=== PATIENT | female | born 1945 | race Caucasian/White ===

== ENCOUNTER 2023-02-28 15:08 | Outpatient (CLI) | payer MEDICARE, SELFPAY ==
--- NOTE | 2023-02-28 14:30 | DI.RAD_ITS ---
Exam(s) XR KNEE RT 3V AP,LAT,CARLI EXAM: XR KNEE RT 3V AP,LAT,CARLI CLINICAL HISTORY: RIGHT KNEE DJD. TECHNIQUE: 2D digital imaging was performed of the right knee. Three views obtained. AP, lateral an d PA tunnel views were obtained. COMPARISON: CR,DX XR KNEE 3V RT from 04/24/2018 FINDINGS: BONES: No acute fracture is present. No bony destructive lesion is seen. There is an enthesophyte at the anterior patella. JOINTS: There are marked degenerative changes seen in the right knee particularly the medial joint co mpartment there is marked joint space narrowing. Osteophytes are seen involving all 3 joint compartm ents. There does appear to be a small joint effusion. SOFT TISSUE: Normal. IMPRESSION: Degenerative changes in the right knee which are severe in the medial femoral tibial joint. DATA REPOSITORY: RADIATION DOSE DELIVERED:
== END 2023-02-28 15:09 | disposition home or self-care (01) ==
LOC: DIORS 15:08
PROVIDERS: PCP Nurse Practitioner Family; Referring Provider Nurse Practitioner Family; Visit Provider Student in an Organized Health Care Education/Training Program
DX: M17.11 Unilateral primary osteoarthritis, right knee (principal)
CPT/HCPCS: 73562; 99203

== ENCOUNTER → 2023-06-23 13:34 | Outpatient (BNVA) | payer MEDICARE, SELFPAY | PROVIDERS: PCP Nurse Practitioner Family; Referring Provider Nurse Practitioner Family; Visit Provider Student in an Organized Health Care Education/Training Program | DX: M17.12 Unilateral primary osteoarthritis, left knee (principal); M17.11 Unilateral primary osteoarthritis, right knee | CPT/HCPCS: 99214 ==

== ENCOUNTER 2023-08-08 05:20 | Outpatient (CLI) | payer MEDICARE, SELFPAY ==
[2023-08-08 15:44] LABS: HCT 37.4 % (36.0-46.0); HGB 12.4 g/dL (11.2-15.7); MCH 27.8 pg (27.0-33.0); MCHC 33.2 % (32.0-36.0); MCV 84 fL (80-95); MPV 9.1 fL (8.0-11.0); Platelet Count 277 10^3/uL (130-400); RBC 4.46 10^6/uL (3.93-5.22); RDW-SD 42.7 fL; WBC 10.22 10^3/uL (4.4-10.8)
[2023-08-08 16:47] LABS: Anion Gap 10.5 mmol/L (3-11); BUN 11 mg/dL (7-18); CO2 29.5 mmol/L (21.0-32.0); CREATININE 0.7 mg/dL (0.55-1.02); Calcium 9.6 mg/dL (8.5-10.1); Chloride 102 mmol/L (98-107); Estimated GFR 89.58 (mL/min/1.73m2); Glucose 106 mg/dL (74-106); Potassium 4.1 mmol/L (3.5-5.1); Sodium 142 mmol/L (136-145)
== END 2023-08-08 05:21 | disposition home or self-care (01) ==
LOC: LBO 05:21
PROVIDERS: PCP Nurse Practitioner Family; Visit Provider Student in an Organized Health Care Education/Training Program
DX: M17.11 Unilateral primary osteoarthritis, right knee (principal); Z01.818 Encounter for other preprocedural examination
CPT/HCPCS: 36415; 80048; 85027

== ENCOUNTER 2023-08-08 15:56 | Outpatient (CLI) | payer MEDICARE, SELFPAY ==
--- NOTE | 2023-08-08 15:15 | DI.RAD_ITS ---
Exam(s) XR STANDING ALIGNMENT EXAM: XR STANDING ALIGNMENT CLINICAL HISTORY: R TKR Planning. TECHNIQUE: 2D digital imaging was performed. Four images were obtained. COMPARISON: CR,DX XR KNEE 3V RT from 04/24/2018 CR ORTHO KNEE RIGHT 4+VIEWS from 03/20/2020 CR XR KNEE RT 3V AP,LAT,CARLI from 02/28/2023 FINDINGS: BONES: The hips are well maintained. In the right knee, there is marked narrowing of the medial femo ral tibial joint. Osteophytes are seen in both the medial and lateral femoral tibial joint space. I n the left knee, there is marked narrowing of the medial femoral tibial joint. Osteophytes are seen both medially and laterally. The ankles are well maintained.There is no significant leg length discr epancy. SOFT TISSUE: Normal. IMPRESSION: Marked osteoarthritis of the knees bilaterally. DATA REPOSITORY: RADIATION DOSE DELIVERED:
== END 2023-08-08 15:57 | disposition home or self-care (01) ==
LOC: DIORS 15:57
PROVIDERS: PCP Nurse Practitioner Family; Visit Provider Physician Assistant
DX: M17.11 Unilateral primary osteoarthritis, right knee (principal); Z01.818 Encounter for other preprocedural examination
CPT/HCPCS: 77073

== ENCOUNTER 2023-08-16 07:08 | Observation (INO) | payer MEDICARE, SELFPAY ==
[2023-08-16] VITALS (20 sets, daily range): BP systolic 102–169; BP diastolic 51–91; PULSE 63–77; RESP 15–20; TEMP 35.7–37; O2SAT 92–198; BMI 42.3
--- NOTE | 2023-08-16 06:42 | ANES.PREOP_ITS ---
General Info Date of Service Date Performed: 08/16/23 Height: 4 ft 11 in Weight: 95 kg Body Mass Index (BMI): 42.3 Surgical Procedure: Operation Date: 08/16/23 07:40 Proposed Procedure Side Surgeon p Knee Total Arthroplasty Right Salvador Colbert MD Meds Allergies and Home Medications Allergies Allergy/AdvReac Type Severity Reaction Status Date / Time Penicillins Allergy Intermediate Skin Rash Verified 08/16/23 06:21 Home Medication Medication Instructions Recorded atenolol 50 mg tablet 50 mg PO HS 12/27/22 atorvastatin 20 mg tablet 20 mg PO DAILY 12/27/22 cetirizine 10 mg tablet 10 mg PO DAILY PRN 12/27/22 cholecalciferol (vitamin D3) 10 10 mcg PO DAILY 12/27/22 mcg (400 unit) capsule vitamin E (dl, acetate) 450 mg 450 mg PO DAILY 12/27/22 (1,000 unit) capsule dulaglutide 0.75 mg/0.5 mL 3 mg subcut QWEEK 08/08/23 subcutaneous pen injector ([facility]) metformin 500 mg tablet 1,000 mg PO BID 08/08/23 acetaminophen 500 mg tablet 1,000 mg (2 x 500 mg) PO TID #90 08/16/23 tabs aspirin 81 mg tablet,delayed 81 mg PO BID #60 tabs 08/16/23 release celecoxib 200 mg capsule 200 mg PO BID #60 caps 08/16/23 dexamethasone 4 mg tablet 4 mg PO DAILY #2 tabs 08/16/23 gabapentin 300 mg capsule 300 mg PO QHS #14 caps 08/16/23 hydromorphone 2 mg tablet 1 - 2 mg (0.5 - 1 x 2 mg) PO Q4H 08/16/23 PRN pain #20 tabs pantoprazole 40 mg tablet,delayed 40 mg PO DAILY #30 tabs 08/16/23 release Current Visit Medications: Current Medications Generic Name Dose Route Start Last Admin Trade Name Freq PRN Reason Stop Dose Admin Acetaminophen 1,000 mg 08/16/23 06:00 Acetaminophen 500 Mg Tab PO 09/14/23 23:59 PREOP JEFF Celecoxib 400 mg 08/16/23 06:00 Celecoxib 200 Mg Cap PO 09/14/23 23:59 PREOP JEFF Gabapentin 300 mg 08/16/23 06:00 Gabapentin 300 Mg Cap PO 09/14/23 23:59 PREOP JEFF Ringer's Solution 1,000 mls @ 80 mls/hr 08/16/23 06:00 IV 09/14/23 23:59 INFUSION JEFF Tranexamic Acid/Sodium Chloride 1,000 mg in 100 mls @ 600 mls/hr 08/16/23 06:00 IVPB 09/14/23 23:59 PREOP JEFF Cefazolin Sodium/Dextrose 2 gm in 50 mls @ 100 mls/hr 08/16/23 06:00 Ancef Duplex IVPB 09/14/23 23:59 PREOP JEFF IV Miscellaneous Supplies 1 each 08/16/23 06:00 Iv Access IV 09/14/23 23:59 DIRECTED JEFF Sodium Chloride 0 ml 08/16/23 06:00 Normal Saline Flush 10 Ml Syr IV 09/14/23 23:59 PRN PRN Sodium Chloride 0 ml 08/16/23 06:00 Normal Saline 10 Ml Vial IJ 09/14/23 23:59 DIRECTED PRN Sterile Water 0 ml 08/16/23 06:00 Water,Injection,Sterile 10 Ml Vial IJ 09/14/23 23:59 DIRECTED PRN PFSH Active Problems Active Problems: Problem Status Onset Code Localized osteoarthritis of left knee M17.12 Degenerative joint disease of right knee M17.11 Hypertensive disorder I10 Hyperlipidemia E78.5 Type 2 diabetes mellitus E11.9 Medical History Medical History Former smoker Surgical History Surgical History (Updated 08/12/23 @ 12:59 by John Lares) History of colonoscopy Previous back surgery pt. denies-pt. states she went for traction but never surgery History of appendectomy Tobacco Smoking/Tobacco Use Status: Former Tobacco Use Alcohol Alcohol Intake: current Alcohol intake frequency: holidays/special occasions only Substance Use Substance use: Never Substance use type: does not use Vital Signs and Lab Results Vital Signs Most Recent Vital Signs in EMR: Most Recent Vital Signs Temp Pulse Resp BP Pulse Ox 36.5 C 73 16 124/62 97 08/16/23 06:26 08/16/23 06:26 08/16/23 06:26 08/16/23 06:26 08/16/23 06:26 Lab Results Blood Type / Crossmatch: No Data to Display Complete Blood Count: White Blood Count 10.22 10^3/uL (4.4-10.8) 08/08/23 15:25 Red Blood Count 4.46 10^6/uL (3.93-5.22) 08/08/23 15:25 Hemoglobin 12.4 g/dL (11.2-15.7) 08/08/23 15:25 Hematocrit 37.4 % (36.0-46.0) 08/08/23 15:25 Platelet Count 277 10^3/uL (130-400) 08/08/23 15:25 Complete Metabolic Panel: Sodium 142 mmol/L (136-145) 08/08/23 15:25 Potassium 4.1 mmol/L (3.5-5.1) 08/08/23 15:25 Chloride 102 mmol/L (98-107) 08/08/23 15:25 Carbon Dioxide 29.5 mmol/L (21.0-32.0) 08/08/23 15:25 BUN 11 mg/dL (7-18) 08/08/23 15:25 Creatinine 0.7 mg/dL (0.55-1.02) 08/08/23 15:25 Est GFR (CKD-EPI 2020) 89.58 (mL/min/1.73m2) 08/08/23 15:25 Calcium 9.6 mg/dL (8.5-10.1) 08/08/23 15:25 Glucose 106 mg/dL (74-106) 08/08/23 15:25 Liver Function Panel: No Data to Display Coagulation Panel: No Data to Display Cardiac Panel: No Data to Display Arterial Blood Gas: No Data to Display Venous Blood Gas: No Data to Display Pancreas Panel: No Data to Display Thyroid Panel: No Data to Display Infectious Disease: No Data to Display Blood Cultures: No Data to Display Toxicology Panel: No Data to Display Anesthesia Assessment and Plan Anesthesia History Personal History: No History of Anesthesia Complications Family History: No Family History of Anesthesia Complications Exercise Tolerance Exercise Tolerance: Metabolic Equivalents>4 Pertinent Negatives Pertinent Negatives: No Major Cardiovascular Symptoms or Complaints and No Major Pulmonary Symptoms or Complaints Cardiac & Pulmonary Exam Cardiac Exam: Normal S1/S2 Heart Sounds Pulmonary Exam: Clear Bilateral Breath Sounds Implantable Cardiac Device Does patient have a Pacemaker or an ICD?: No Airway Exam Known Difficult Airway: No Mallampati Class: 2 Mouth Opening: Normal (> 3cm) Thyromental Distance: Greater than 3 cm Neck Range of Motion: Full ROM Neck Circumference: Normal Teeth Condition: Removable Dentures/Plates Upper and Removable Dentures/Plates Lower ASA Classification ASA Score: ASA 3 Emergency Case?: No NPO Status NPO Status: NPO Clears >2 hours, Solids >8 hours Anesthesia Plan Resuscitation Status: Full Code Anesthesia Technique: Spinal Anesthesia Airway Planned: Natural Airway Pain Management: Surgeon and patient request nerve block Monitors Used: Standard Monitors Preoperative Comments:: SAB with MAC anesthesia, has poorly controlled GERD
[2023-08-16] MEDS: Acetaminophen 500 MG TAB 1000 MG PO ×2 (06:44→21:24)
[2023-08-16] MEDS: Celecoxib 200 MG CAP 400 MG PO (06:45)
[2023-08-16] MEDS: Gabapentin 300 MG CAP PO (06:45)
[2023-08-16] MEDS: Lactated Ringers 1,000 ML 80 ML IV ×2 (06:54→10:25)
--- NOTE | 2023-08-16 07:09 | PDOC.DSDIS_ITS ---
Date of service: 08/16/23 Time of Service: 07:09 Discharge Plan Disposition Patient Disposition: Home Condition: Good Discharge Details Reason For Visit: R TKR Attending Provider: Salvador Colbert Primary Care Provider: Sony Snider Home Meds and New Rx's Prescriptions: New acetaminophen 500 mg tablet 1,000 mg PO TID Qty: 90 3RF aspirin 81 mg tablet,delayed release (DR/EC) 81 mg PO BID Qty: 60 0RF celecoxib 200 mg capsule 200 mg PO BID Qty: 60 0RF dexamethasone 4 mg tablet 4 mg PO DAILY Qty: 2 0RF gabapentin 300 mg capsule 300 mg PO QHS Qty: 14 0RF hydromorphone 2 mg tablet 1 - 2 mg PO Q4H PRN (Reason: pain) Qty: 20 0RF pantoprazole 40 mg tablet,delayed release (DR/EC) 40 mg PO DAILY Qty: 30 0RF Continued metformin 500 mg tablet 1,000 mg PO BID Trulicity 0.75 mg/0.5 mL pen injector 3 mg subcut QWEEK atenolol 50 mg tablet 50 mg PO HS atorvastatin 20 mg tablet 20 mg PO DAILY cetirizine 10 mg tablet 10 mg PO DAILY PRN cholecalciferol (vitamin D3) 10 mcg (400 unit) capsule 10 mcg PO DAILY vitamin E (dl, acetate) 450 mg (1,000 unit) capsule 450 mg PO DAILY Discontinued aspirin [Adult Aspirin Regimen] 81 mg tablet,delayed release (DR/EC) 81 mg PO DAILY Discharge Instructions Additional Instructions: Total Knee Discharge Instructions Activity: The most important activity is to walk and to work on gentle motion (both flexion and extension). You should try to take short walks a few times a day. It is important that when resting you work on keeping the knee straight. Avoid putting a pillow behind the knee as this will encourage flexion. Work on range of motion exercises as provided by Physical Therapy. - Start outpatient physical therapy within 2 weeks. - You should wear the STEPHAN hose on both legs for 2 weeks. You may remove these at night. You may also use any compression sock in place of the STEPHAN hose. - Utilize [employer] to review exercises, see videos on exercises and obtain basic information pertaining to your surgery and your recovery. Dressing: Remove the Flip wrap by 2 days after your surgery and put on the STEPHAN stocking given to you from the hospital. Keep the surgical dressing (underneath the FLIP wrap) in place for at least one week. After the first week it may be removed and replaced with light gauze and tape or nothing. The wound and dressing may get wet after 3 days but avoid soaking the dressing or otherwise it will need to be changed. Many people prefer covering the dressing with cling wr ap (saran wrap) to minimize it from getting soaked. If it gets wet, just pat dry. If it starts to peel off then it will need to be changed. Medications: - You should take Tylenol and anti-inflammatory Celebrex as your primary pain control medications. If the Celebrex is too expensive or not covered, please call the office for another alternative (Advil/Ibuprofen or Naproxen/Aleve) - You have been prescribed a stronger pain medication hydromorphone for breakthrough pain, take as needed as prescribed. - You have also been prescribed a stomach acid reduction agent Pantoprozole to help reduce stomach acid and reflux. - You have been prescribed Gabapentin to take at night for restlessness and nerve pain. - You will be taking Aspirin 81mg twice a day for DVT prevention unless instructed otherwise. - You have also been prescribed Decadron to take to control post-operative nausea and pain. You will start this tomorrow. - If you have constipation you should take Colace or Miralax (both [id number]). It takes most people 3-4 days to have a bowel movement. Follow-up: 2 weeks If you have any acute concerns or questions, please do not hesitate to contact the office at [phone]. You may contact Dr. Colbert with any questions after hours through the hospital at [phone] or on his cell phone at [phone]. Referrals: Salvador Colbert MD [ [facility] STAFF PHYSICIAN] - Equipment/Supplies: Walker Activity:: Activity as Tolerated Shower/Bathe:: 72 hours Diet:: As Tolerated DS: Diagnosis Discharge Diagnosis (1) Degenerative joint disease of right knee: Status: Chronic
[2023-08-16] MEDS: ceFAZolin 2 GM/50 ML BAG IVPB (07:49)
[2023-08-16] MEDS: TRANEXAMIC ACID/SOD. CHL. 1,000 MG/100 ML BAG 600 MG IVPB (08:01)
--- NOTE | 2023-08-16 08:23 | W.ANESNERVE ---
Nerve Block Single Injection Procedure Date and Time Date Performed: 08/16/23 Procedure Start: 07:25 Location Where Procedure Performed Procedure Location: Day Surgery Unit Reason Performed: Postoperative Analgesia Requesting Provider: Salvador Colbert Timeout Performed Timeout Performed: Yes Monitoring Used ECG, Blood Pressure and See EMR for corresponding vital signs Sterility Sterility: Hand Hygiene, Surgical Cap, Surgical Mask, Sterile Gloves and Chlorhexidine Sedation Given During Procedure Sedation Given (Indicate Dose Given): No Sedation given Patient Mental Status Patient Mental Status: Awake Nerve Block 1st Nerve Block: Laterality: Right Block Type: Adductor Canal Ultrasound Image Saved?: Yes Needle / Catheter Used: 100mm SonoPlex II Local Anesthetic Bolus (Indicate Dose Given): Lidocaine used for local infiltration of skin, Injected in 3-5ml increments after negative blood aspiration and Bupivacaine 0.25% Dose:: 15 mL Additives (Indicate Dose Given): None Ultrasound: Sterile probe cover and gel used Nerve Stimulator: Supplement to Ultrasound use and No twitch or parasthesia noted < 0.5 mA Paresthesia: Right Paresthesia Duration: Transient Procedure Tolerated: No Complications Procedure Outcome: Successful Procedure Comment: Transient parasthesia when advancing needle, negative nerve stimulation for entirety of block. Patient tolerated well. Performed By: Brooklyn Reid
--- NOTE | 2023-08-16 09:15 | ROE_ITS ---
Date of service: 08/16/23 Time of Service: 08:00 Operative Note Operative Note DATE OF PROCEDURE: 08/16/23 PRE-OP DIAGNOSIS: Right Knee Osteoarthritis POST-OP DIAGNOSIS: same PROCEDURE: Right Total Knee Replacement SURGEON: Salvador Colbert PEDIATRIC NEPHROLOGIST: Jamila Snell ANESTHESIA TYPE: Spinal Refer to Anesthesia Record ESTIMATED BLOOD LOSS: 150 PATHOLOGY: none sent TOURNIQUET TIME: 0 COMPLICATIONS: None Patient was transported to: PACU Patient's condition: stable Implants: 1. Depuy Attune Cementless Cruciate Retaining Femoral Component, Size 4 2. Depuy Attune Cementless Fixed Bearing Tibial Component, Size 4 3. Depuy Attune 4x7 CR/FB Poly 4. Depuy Attune Patellar Component, Size 32 Indications: I have seen Irasema in clinic for symptoms of knee arthritis, confirmed with radiographic findings. She has exhausted nonoperative methods and was having significant limitations in daily function and desired better function and less pain. I discussed the technical details of a knee replacement. I explained the risks of the procedure to include, but not limited to, bleeding, infection, pain, stiffness, fracture, damage to nerves and vessels, damage to muscles and tendons, loosening, need for repeat procedure, blood clot and cardiopulmonary demise. Despite these risks, Irasema elected to proceed. Findings: There was significant signs of arthritis throughout the knee, focused mostly over the medial compartment. Procedure Description: Irasema was greeted in the preoperative holding area where the correct side was identified and marked. The consent was reviewed with the patient and signed. The history and physical was updated. All questions were answered. Preoperative medications were administered: Acetaminophen 1000mg, Celebrex 400mg, and Gabapentin 300mg. An adductor canal block was then administered by the anesthesia team in the PACU. She was taken back to the operating room. A spinal anesthestic was then administered. The patient was placed into the supine position on the operating room table. A nonsterile tourniquet was placed high onto the leg but only used for cementing. Posts were placed for positioning during the procedure. All bony prominences were well padded. Prophylactic antibiotics in the form of Cefazolin were administered. 1g of Tranxemic Acid was given intravenously within 30 minutes of incision. The right leg was then prepped with Chloraprep and draped in a standard fashion with impervious stockinette. A second prep with Chloraprep was performed prior to application of Iodine impregnated skin pr otection. A timeout to confirm correct identity, side and site, procedure, allergies, anesthesia, and medical concerns was performed. With the knee in some flexion, a midline incision was made overlying the knee. Full thickness skin flaps were raised once the extensor mechanism was encountered. These were raised medially and laterally. Any bleeding was controlled with electrocautery. Once the extensor mechanism was fully exposed, a medial parapatellar arthrotomy was performed in a flexed position. All bleeding from the arthrotomy and the geniculate arteries was coagulated. A medial subperiosteal peel was performed with electrocautery to the midcoronal plane. The fat pad was removed while keeping the patellar tendon protected. The anterior distal femur synovium was removed for later visualization. The ACL and PCL were resected and the anterior horn of the lateral meniscus was transected. The knee was then flexed with the patella everted. Large osteophytes from the tibia were removed. Large osteophytes from the femur were removed. Using a step drill, and based on preoperative templating, the femoral canal was entered. This was done with a step drill without any difficulty. The intramedullary distal femoral cut guide was inserted, set to a 6 degree valgus cut and 9mm cut thickness. The distal femoral cut guide was then held in position and pinned. With the soft tissues protected, the distal cut was performed. This was passed over a few times to ensure a planar cut. I then turned attention to the tibia. The extramedullary guide was placed onto the leg. The distal aspect was slid medial to adjust for position of center of ankle and stay in line with shaft of the tibia. Approximately 5 degrees of posterior slope was kept in the proximal cutting guide. The center of the guide was aligned with the PCL. The stylus was used to assess cut thickness. The medial side, most involved side, was set for a 5mm cut. This was then held in position and pinned into place with 2 additional pins and a cross pin for stability. The medial and lateral collateral ligaments were protected and the cut was performed. With this completed, it was assessed and noted to be of appropriate dimensions. The guide was removed. A spacer block was inserted and the knee was brought into extension. The 7mm spacer block provided full extension, without hyperextension and with stability of both the medial and lateral collateral ligaments was assessed. The pins from the femur and the tibia were then removed. The distal femur was then sized. The anterior stylus was placed onto the lateral ridge of the anterior femur. This indicated a size 4 femur. The external rotation of the guide was adjusted to 3 degrees to match the epicondylar axis, perpendicular to Flo?s line. The 4-in-1 cutting guide was the placed. The posterior medial femur cut was evaluated and appeared of good thickness. The spacer block was inserted underneath the cutting guide and stability was confirmed in 90 degrees of flexion. An karena wing was used to confirm appropriate position of the anterior cut to avoid notching. This cutting guide was ensured to be flush on the cut surface and then pinned into place with headed pins. While protecting the soft tissues, quad tendon, and collateral ligaments, the anterior and posterior cuts were performed with a saw. The central two pins were removed and the posterior and anterior chamfers were cut next. The notch-cutting guide was placed. This was pinned to lateralize the femoral component as much as possible while keeping it flush on the cut surface. This was then pinned into position. A reciprocating saw was used to make the notch cut. A rasp smoothed the cut surfaces. The medial and lateral menisci were removed. A trial femoral component was then inserted, impacted down to the cut surfaces, and the lug holes were drilled. A provisional trial tibial component was placed and the knee was brought through range of motion. There was noted to be excellent extension and flexion. There was no significant instability. The patella was tracking without thumbs. A size 7mm polyethylene component provided the best range of motion and stability with less than 2mm gapping with medial and lateral stress and full extension without significant hyperextension. The tibial cut surface was fully exposed. The tibia was then sized as a 4. The tibia had been previously marked during trialing to correspond to the center of the tibial component to help with rotation. The trial was aligned to this jamila, approximately rotated to the medial 1/3rd of the tibial tubercle. The trial was pinned into place. The tibia was prepared with a reamer and a keel punch and lug holes. The knee was then brought into extension and the patella was measured as 22mm. Using the patellar clamp and cut guide, this was resected to a flat surface with at least 13mm of thickness remaining. The size 32 patella fit the best. This was oriented and then clamped into position. The lugs were drilled. The trial components were removed. The final components were opened on the back table. The periosteal and capsular tissues, especially posteriorly, around the knee were then systematically injected with a periarticular cocktail consisting of 246mg of Ropivacaine, 0.5mg of Epinephrine, 0.08mg of Clonidine, and 30mg of Ketorolac, diluted to 100cc. On the back table, with the implants opened, the cement was mixed. One batch of high viscosity cement was prepared with vacuum assistance. After the cement was ready a small amount was placed on the cut surface of the patella and the patellar button was clamped into position and held. While the cement was hardening, the cementless knee components were placed. Starting with the tibial component, the tibia was subluxed anteriorly and the lug holes of the component were lined up. The tibia was then impacted with an impactor and mallet until the tibial component was in contact with the tibia. The final polyethylene component was inserted. Then, the femoral component was inserted. The lug holes were aligned and the component was impacted into position. The knee was irrigated with Surgiphor Betadine solution. This was allowed to sit in the knee for 3 minutes and then it was irrigated out with saline. After the cement had finally cured, approximately 15min, the clamp was removed from the patella and the knee was taken through range of motion. The patella was tracking with a no-thumbs technique. The capsule was then reapproximated with a No. 1 Vicryl at multiple locations. The capsule was finally closed with a No. 2 Stratafix, barbed suture. The second dosing of 1g TXA was started. Deep tissues were then reapproximated with 0 Vicryl and 2-0 Vicryl. The skin was closed with a running 3-0 Monocryl in a subcuticular fashion. This was reinforced with skin glue. A Mepilex silver dressing was applied along with a oala-oy-kaala CAMPOS wrap. A CryoCuff was applied. Irasema was transferred to the hospital bed without difficulty an suffering no apparent complication. Irasema has a good prognosis. Physical therapy will start today and without restrictions, weight-bearing as tolerated. Aspirin 81mg BID will be used for DVT prophylaxis.
--- NOTE | 2023-08-16 10:23 | W.ANESPOSTOP ---
Postoperative Evaluation Date, Time and Location Date Performed: 08/16/23 Time Performed: 09:35 Patient Location: PACU Vital Signs Most Recent Imported Vital Signs: Most Recent Vital Signs Temp Pulse Resp BP Pulse Ox 36.4 C L 63 17 125/90 198 H 08/16/23 09:58 08/16/23 09:58 08/16/23 09:58 08/16/23 09:58 08/16/23 09:58 Pain Score Most Recent Pain Score: Most Recent Pain Score Pain Level 2 08/16/23 09:58 Assessment Mental Status: Awake (Alert & Oriented to Patient Baseline) Airway and Respiratory Function: Patent airway with normal (patient baseline) respiratory exam Cardiovascular Function: Hemodynamically Stable Hydration Status: Adequately Hydrated Nausea & Vomiting: No Nausea or Vomiting Pain: Pain is tolerable per patient Peripheral Nerve Block: Patient did not receive a nerve block
[2023-08-16] MEDS: traMADol 50 MG TAB PO (14:16)
--- NOTE | 2023-08-16 15:36 | IN_ITS ---
PT Notes Visit Reasons: OA R Knee Physical Therapy Inpatient Initial Evaluation Date: 08/16/2023 Referring Doctor: CHRISSY Junior PT Orders: PT CONSULT: S/P Ortho Surgery Precautions: Fall. Standard precautions. WBAT on right LE with AD. Patient Profile/Admitting Diagnosis: Irasema is a 77-year-old female with degenerative joint disease of the right knee and status post right total knee arthroplasty on postoperative day 0. PMHX: Medical History Former smoker Surgical History History of colonoscopy Previous back surgery History of appendectomy Social History/Home Situation: Lives with in a private home with no steps to enter. Independent with all aspects of ADLs prior to surgery although has had difficulty with mobility ADL performance due to worsening arthritis. Still drives. Equipment Owned/DME: [facility] Subjective: Reported muscles above R knee was achy but did not limit today's mobility performance. Denied headache, chest pain, and lightheadedness throughout session. Objective: General Observation: CAMPOS wrap to right knee. Cryo/Cuff to right knee. Mental Status: Alert and oriented as to person, place, time, and purpose. Able to pay attention, focus, and respond appropriately. Pain: 2-3/10 on the R distal thigh Vital Signs: WNL as closley monitored by nursing ROM: Right Lower Extremity: Hip flexion WFL. Hip abduction WFL. Knee flexion 10 degrees to 90 degrees ACTIVELY while seated at edge of bed. Knee extension -10 degrees. Ankle dorsiflexion WFL. Ankle plantarflexion WFL. Left Lower Extremity: Hip flexion WFL. Hip abduction WFL. Knee flexion WFL. Ankle dorsiflexion WFL. Ankle plantarflexion WFL. Strength: Right Lower Extremity: Hip flexors 4/5. Hip abductors 4/5. Knee flexors 3-/5. Knee extensors 3-/5. Ankle dorsiflexors 4/5. Ankle plantarflexors 4/5. Left Lower Extremity: Hip flexors 5/5. Hip abductors 5/5. Knee flexors 4/5. Knee extensors 4/5. Ankle dorsiflexors 5/5. Ankle plantarflexors 5/5. Bed Mobility/Transfers: Minimal cueing provided for use of B hands as needed for support, movement sequence, AD management, and posture to reduce fall risk and minimize pain report Supine to sit contact guard assist with HOB at 30 degrees Sit to stand contact-guard assist with FWW Stand to sit contact-guard assist with FWW Bed to reclining contact-guard assist with FWW Gait: Facilitated safe and correct performance of level surface ambulation covering a distance of 50 feet using front wheeled walker with step to gait pattern requiring contact-guard assist and wheelchair follow of PT for safety. Minimal verbal cueing provided for AD management, movement sequence, and posture to reduce fall risk and minimize pain report. Balance: Static Sitting: Normal Dynamic Sitting: Normal Static Standing: Fair Dynamic Standing: Fair Special Tests: Mobility Limitations Standardized Measure [facility] AM-PAC 6 clicks Basic Mobility Inpatient Short Form: Raw Score: 18 CMS Score: 47 % deficit Informed Consent/Education: Patient was instructed in purpose of PT consult and plan of care. Agreeable to proceed with established PT POC to achieve personal goals. Trained patient with correct performance of exercises below to maximize motor control, joint flexibility, soft tissue extensibility of the R knee musculature: Access Code: [email or web address] URL: [email or web address] Date:08/16/2023 Prepared by: Ashley Harden Exercises - Supine Quad Set - 1 x daily - 7 x weekly - 1 sets - 10 reps - 5 hold - Supine Heel Slide - 1 x daily - 7 x weekly - 1 sets - 10 reps - 5 hold - Supine Ankle Pumps - 1 x daily - 7 x weekly - 1 sets - 10 reps - 5 hold - Small Range Straight Leg Raise - 1 x daily - 7 x weekly - 1 sets - 10 reps - 5 hold - Seated March - 1 x daily - 7 x weekly - 1 sets - 10 reps - 5 hold Assessment: Irasema requires the use of a front wheeled walker for all mobility ADL performance to maximize independence and reduce fall risk while minimizing pain report. Patient presents with clinical signs and symptoms consistent with current/admitting diagnoses that have resulted to mobility limitations, gait instability, generalized weakness, and overall ADL decline as demonstrated by the following impairment level findings: 1. Decreased strength to R kne major muscle groups 2. Impaired sitting/standing balance 3. Impaired activity tolerance 4. Limitation of joint range of motion in R knee Impairments are contributing to the following functional limitations: 1. Decline in bed mobility skills 2. Decline in transfer skills 3. Difficulty with ambulation without assistive device and physical assistance 4. Increased completion time for mobility ADL performance 5. Increased risk for falls 6. Difficulty with managing steps alone safely Patient is assessed as a 26820 moderate complexity based on the following: History: 77-year-old female with past medical history as indicated above Examination: Demonstrable impairment in strength, balance, and mobility level with underlying impairments and functional limitations as exhibited above as well as deficit score of 47% utilizing the [facility] Mobility Inpatient Short Form Presentation: Evolving Decision Makin moderate complexity Goals: Goals X1 week 1. Supine-Sit independent 2. Sit-Supine independent 3. Sit-Stand independent 4. Stand-Sit independent with FWW 5. Bed-Chair independent with FWW 6. Chair-Bed independent with FWW 7. Independent gait on level surface with use of FWW for at least 300 feet without report of pain nor dyspnea 8. Independent with home exercise program 9. Good static and dynamic standing balance/tolerance Plan of Care/Treatment Plan: 1-2x/day, 7 days/week x 1 week. Plan of care has been reviewed with the [facility] providing the service under Physical Therapy direction. Initiate Physical Therapy intervention for pain management as needed, strengthening, bed mobility, transfers, gait, stairs, balance training, and use of assistive device. DISCHARGE RECOMMENDATIONS: [] Home with no services [] [] Home with services [specify] [X] Home with outpatient PT. home when medically cleared by orthopedic surgeon. Recommend outpatient PT services in order to optimize functional mobility outcomes and facilitate return to independent community ambulation without an assistive device. [] SNF for continued rehabilitation [] [] [facility] [] [] SNF versus LTC based on ability to participate and progress [] TREATMENT CODE/TIME: 9716 2 x 20 minutes for 1 unit, 9753 0 x 14 minutes for 1 unit (15:36-16:10). Thank you for the opportunity to participate in the care of this patient. Ashley Harden PT, DPT, CLT [facility] [place], [place]
[2023-08-16] MEDS: Tranexamic Acid 650 MG TAB 1300 MG PO (20:48)
[2023-08-16] MEDS: Atenolol 50 MG TAB PO (20:49)
[2023-08-17] MEDS: Lactated Ringers 1,000 ML 80 ML IV (00:25)
[2023-08-17 03:48] VITALS: BP 120/77; PULSE 56; RESP 18; TEMP 36.2; O2SAT 95
[2023-08-17] MEDS: Cholecalciferol (Vitamin D3) 400 UNIT TAB PO (07:34)
[2023-08-17] MEDS: traMADol 50 MG TAB PO (07:36)
[2023-08-17] MEDS: metFORMIN 500 MG TAB 1000 MG PO (07:36)
[2023-08-17 07:54] VITALS: BP 112/78; PULSE 71; RESP 15; TEMP 36.7; O2SAT 96
--- NOTE | 2023-08-17 09:19 | PT.INTREAT ---
PT Notes Visit Reasons: OA R Knee Date: 08/17/23 PRECAUTIONS: Fall. Standard precautions. WBAT on right LE with AD. SUBJECTIVE: Pt in bed when approached for therapy this morning, pt reports she already took her pain meds and the pain is leseer as a result. OBJECTIVE: ?Cryocuff on the Right knee, SCD on the left LE ? PAIN: 09/11 right knee, Therapeutic Activities 52131: Direct one-on-one instruction in dynamic activities to improve functional performance. ?? BED MOBILITY/TRANSFERS? Rolling L/R: SBA Supine-sit: ? ?SBA ? Sit-supine: ? ?SBA ? Sit-stand: ? ? SBA? Stand-sit: ?? SBA? Bed-Chair:? ? ?SBA ? Chair-bed: SBA Provided skilled cues and instruction on performance and technique throughout. Gait Training 97972: Direct one-on-one instruction and skilled instruction in: Employing an assistive device Modified weight-bearing status Movement sequencing Turning and movement with proper form Provided verbal cues for equipment management and technique Provided instruction in gait pattern Patient education regarding pacing and breathing techniques to maximize activity tolerance? GAIT? Assistive Device: ??FWW? Weight bearing: WBAT Assist: ?CGA ? Distance:?? ? 50' ? Deviation: ?antalgic gait ? ASSESSMENT:?Pt reports the pain stayed at 6/10 during gait training, pt stayed in recliner post session. PLAN: Continue with balance training, global strengthening and general conditioning for improved safety, mobility and activity tolerance until pt is ready for DC. TREATMENT CODE/TIME: [id number] 25mins (8:15-9:20am)
[2023-08-17] MEDS: Acetaminophen 500 MG TAB 1000 MG PO ×2 (09:56→13:29)
[2023-08-17] MEDS: Docusate Sodium 100 MG CAP PO (09:56)
--- NOTE | 2023-08-17 10:13 | DSE_ITS ---
Date of service: 08/17/23 Time of Service: 10:13 DS: Diagnosis Discharge Diagnosis (1) Degenerative joint disease of right knee: Status: Resolved Discharge Plan Disposition Patient Disposition: Home Condition: Good Discharge Details Reason For Visit: OA R Knee Admit Date/Time: 08/16/23 07:08 Admit Provider: Salvador Colbert Attending Provider: Salvador Colbert Primary Care Provider: Sony Snider Hospital Course Hospital Course: Patient was admitted to the medical/surgical floor following the procedure. The surgery was tolerated well without any notable medical, surgical, or anesthetic complications. Mobilization began postoperatively. She was voiding spontaneously. Vitals were stable. Physical therapy worked with the patient and was cleared for discharge home. No acute medical issues. Pain was controlled on oral regimen. Home Meds and New Rx's Prescriptions: New acetaminophen 500 mg tablet 1,000 mg PO TID Qty: 90 3RF aspirin 81 mg tablet,delayed release (DR/EC) 81 mg PO BID Qty: 60 0RF celecoxib 200 mg capsule 200 mg PO BID Qty: 60 0RF dexamethasone 4 mg tablet 4 mg PO DAILY Qty: 2 0RF gabapentin 300 mg capsule 300 mg PO QHS Qty: 14 0RF hydromorphone 2 mg tablet 1 - 2 mg PO Q4H PRN (Reason: pain) Qty: 20 0RF pantoprazole 40 mg tablet,delayed release (DR/EC) 40 mg PO DAILY Qty: 30 0RF Continued metformin 500 mg tablet 1,000 mg PO BID Trulicity 0.75 mg/0.5 mL pen injector 3 mg subcut QWEEK atenolol 50 mg tablet 50 mg PO HS atorvastatin 20 mg tablet 20 mg PO DAILY cetirizine 10 mg tablet 10 mg PO DAILY PRN cholecalciferol (vitamin D3) 10 mcg (400 unit) capsule 10 mcg PO DAILY vitamin E (dl, acetate) 450 mg (1,000 unit) capsule 450 mg PO DAILY Discontinued aspirin [Adult Aspirin Regimen] 81 mg tablet,delayed release (DR/EC) 81 mg PO DAILY Discharge Instructions Additional Instructions: Total Knee Discharge Instructions Activity: The most important activity is to walk and to work on gentle motion (both flexion and extension). You should try to take short walks a few times a day. It is important that when resting you work on keeping the knee straight. Avoid putting a pillow behind the knee as this will encourage flexion. Work on range of motion exercises as provided by Physical Therapy. - Start outpatient physical therapy within 2 weeks. - You should wear the STEPHAN hose on both legs for 2 weeks. You may remove these at night. You may also use any compression sock in place of the STEPHAN hose. - Utilize [employer] to review exercises, see videos on exercises and obtain basic information pertaining to your surgery and your recovery. Dressing: Remove the Flip wrap by 2 days after your surgery and put on the STEPHAN stocking given to you from the hospital. Keep the surgical dressing (underneath the FLIP wrap) in place for at least one week. After the first week it may be removed and replaced with light gauze and tape or nothing. The wound and dres sing may get wet after 3 days but avoid soaking the dressing or otherwise it will need to be changed. Many people prefer covering the dressing with cling wrap (saran wrap) to minimize it from getting soaked. If it gets wet, just pat dry. If it starts to peel off then it will need to be changed. Medications: - You should take Tylenol and anti-inflammatory Celebrex as your primary pain control medications. If the Celebrex is too expensive or not covered, please call the office for another alternative (Advil/Ibuprofen or Naproxen/Aleve) - You have been prescribed a stronger pain medication hydromorphone for breakthrough pain, take as needed as prescribed. - You have also been prescribed a stomach acid reduction agent Pantoprozole to help reduce stomach acid and reflux. - You have been prescribed Gabapentin to take at night for restlessness and nerve pain. - You will be taking Aspirin 81mg twice a day for DVT prevention unless instructed otherwise. - You have also been prescribed Decadron to take to control post-operative nausea and pain. You will start this tomorrow. - If you have constipation you should take Colace or Miralax (both [id number]). It takes most people 3-4 days to have a bowel movement. Follow-up: 2 weeks If you have any acute concerns or questions, please do not hesitate to contact the office at [phone]. You may contact Dr. Colbert with any questions after hours through the hospital at [phone] or on his cell phone at [phone]. Referrals: Salvador Colbert MD [ [facility]FF PHYSICIAN] - Activity:: Activity as Tolerated Equipment/Supplies:: Walker Diet:: As Tolerated Discharge Orders Discharge Orders: Discharge Order (Routine); Ordered 08/17/23 Ordered By: Salvador Colbert DS: Summary Time Spent with Patient providing and/or coordinating discharge services: Less than 30 minutes Status at Discharge Functional status at discharge: uses cane/walker Overall status at discharge: patient is progressing back to baseline Mental Status: mental status grossly normal Speech and Movement: speech and movement normal Mood: congruent mood Affect: normal affect Quality:SDOH Health Related Social Needs: No Data to Display Exam Narrative Exam Narrative: NAD. AAOx3. RLE dressing c/d/i. +ADF/APF/EHL/FHL. SILT DP/SP/Tib. Psych Mental Status: mental status grossly normal Speech and Movement: speech and movement normal Mood: congruent mood Affect: normal affect DS: Data Vitals/I&O Vitals and I&O: Vital Signs Temperature 36.7 C 08/17/23 07:54 Temperature Source Tympanic 08/17/23 07:54 Pulse 71 08/17/23 07:54 Pulse Rhythm Regular 08/17/23 07:21 Respiratory Rate 15 08/17/23 07:54 Respiratory Effort Normal, Non-Labored 08/17/23 07:21 Respiratory Depth Normal 08/16/23 06:26 Blood Pressure 112/78 08/17/23 07:54 Blood Pressure Mean 88 08/16/23 07:32 Blood Pressure Position Supine 08/16/23 07:25 Pulse Oximetry 96 08/17/23 07:54 Oxygen Delivery Method Room Air 08/17/23 07:54 Oxygen Flow Rate 0 08/17/23 07:54 Pain Level 6 08/17/23 07:54 Intake & Output 08/16/23 08/16/23 08/17/23 11:59 23:59 11:59 Intake Total 822.667 / 2262.667 1440 / 2262.667 1354 / 1354 Output Total 150 / 1900 1750 / 1900 Balance 672.667 / 362.667 -310 / 085.660 2337 / 1354 Weight 95 kg Intake: IV 822.667 / 8467.407 9972 / 1822.667 664 / 664 Oral 440 / 440 690 / 690 Output: Urine 1750 / 1750 Estimated Blood Loss 150 / 150 Other: Urine Color Yellow Yellow Urine Appearance Clear Clear Urine Odor Normal Comment pT voided 400ml. unmeasured- no hat Emesis Description None Voiding Methods Bedside Commode Bedside Commode PFSH All Active Problems History of total right knee replacement (Acute 08/16/23) Localized osteoarthritis of left knee (Acute) Hypertensive disorder (Chronic) Hyperlipidemia (Acute) Type 2 diabetes mellitus (Acute) Medical History Former smoker Surgical History History of colonoscopy Previous back surgery pt. denies-pt. states she went for traction but never surgery History of appendectomy Social History Smoking/Tobacco Use Status: Former Tobacco Use Quit Date: 04/04/98 Smoking risk assessment performed?: Yes Alcohol Intake: current Alcohol Intake frequency: holidays/special occasions only Drug use: Never Substance use type: does not use Housing: apartment Do you feel safe at home: Yes Do you feel safe in your relationship?: Yes Time Spent with Patient Time Spent with Patient: <45 minutes Time was spent: preparing to see the patient(eg.review tests), referring, communicating with other health medicare biller and counseling the patient
[2023-08-17 11:08] VITALS: BP 130/53; PULSE 72; RESP 16; TEMP 36.9; O2SAT 95
--- NOTE | 2023-08-17 13:35 | CHAPLAIN ---
Irasema had knee replacement surgery yesterday and said her knee is hurting this morning. She's also worried because she can't lift up her leg. Irasema is from [place] and hurt good things about the orthopedic surgeons here so decided to have her surgery at [facility]. She is the middle child of 14 siblings, and her is also. 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 Her daughter was speaking with her on the phone when I visited.
--- NOTE | 2023-08-17 13:51 | PDOC.CMDIS ---
Date of service: 08/17/23 Time of Service: 13:51 LACE Index Scoring Tool Questions: Length of Stay (in days): 1 Was the patient admitted via the E.D.?: No Comorbidities: Diabetes w/o Complication E.D. Visits: 0 Answers: Total Score: 2 Risk of Readmission: Low Risk Care Management Discharge Plan Reason for Hospitalization: OA Right Knee Discharge Plan: Irasema is discharged home with a plan to follow up with Ortho on 09/02/23. Pt will follow up with community providers and her discharge plan of care as instructed. Pt is driven home via private vehicle with . Patient/Family Education Needs: Review discharge instructions, limitations, medications and plan to follow up with community providers. Discuss ask me three. Services Needed at Discharge: Physical Therapy (Per PT: Outpatient PT) SDOH Health Related Social Needs: No Data to Display
== END 2023-08-17 13:50 | disposition home or self-care (01) ==
LOC: SUR 07:10 → MS 10:22
PROVIDERS: Admitting Provider Student in an Organized Health Care Education/Training Program; PCP Nurse Practitioner Family; Visit Provider Student in an Organized Health Care Education/Training Program
PROC: (CPT 27447; principal; 2023-08-16 07:30)
DX: M17.11 Unilateral primary osteoarthritis, right knee (principal); I10 Essential (primary) hypertension; E11.9 Type 2 diabetes mellitus without complications; Z79.84 Long term (current) use of oral hypoglycemic drugs; E78.5 Hyperlipidemia, unspecified
CPT/HCPCS: 27447; C1776; 76942; 97116; 97162; 97530; J0665; J0690; J2250; J2371; J2401; J2405; J2704; J3490

== ENCOUNTER 2023-09-02 09:14 | Outpatient (CLI) | payer MEDICARE, SELFPAY ==
--- NOTE | 2023-09-02 09:00 | DI.RAD_ITS ---
Exam(s) XR KNEE RT 1V XR STANDING ALIGNMENT EXAM: XR STANDING ALIGNMENT CLINICAL HISTORY: F/U RIGHT TKR. TECHNIQUE: 2D digital imaging was performed. Standing AP views were performed from the pelvis throu gh the ankles. COMPARISON: CR XR STANDING ALIGNMENT from 08/08/2023 CR XR KNEE RT 1V from 09/02/2023 FINDINGS: BONES: No acute fracture is present. No bony destructive lesion is seen. Leg length discrepancy: Minimal, with the left femoral head projecting a few millimeter superior to t he right. JOINTS: Knees: A right total knee prosthesis has been placed since the prior exam. The arm in appear s satisfactory. There are severe degenerative changes again noted in the medial femoral tibial joint space of the left knee. The ankle joints are unremarkable. The hip joints are unremarkable. SOFT TISSUE: Normal. IMPRESSION: Status post placement of right knee prosthesis. Severe degenerative changes medial femoral tibial j oint left knee.. Minimal leg length discrepancy. DATA REPOSITORY: RADIATION DOSE DELIVERED:
== END 2023-09-02 09:15 | disposition home or self-care (01) ==
LOC: DIORS 09:15
PROVIDERS: PCP Nurse Practitioner Family; Referring Provider Nurse Practitioner Family
DX: Z96.651 Presence of right artificial knee joint (principal); Z47.1 Aftercare following joint replacement surgery
CPT/HCPCS: 73560; 77073

== ENCOUNTER → 2023-09-29 09:27 | Outpatient (BNVA) | payer MEDICARE, SELFPAY | PROVIDERS: PCP Nurse Practitioner Family; Referring Provider Nurse Practitioner Family | DX: Z47.1 Aftercare following joint replacement surgery (principal); Z96.651 Presence of right artificial knee joint ==

== ENCOUNTER → 2023-11-10 10:54 | Outpatient (BNVA) | payer MEDICARE, SELFPAY | PROVIDERS: PCP Nurse Practitioner Family; Referring Provider Nurse Practitioner Family | DX: Z47.1 Aftercare following joint replacement surgery (principal); Z96.651 Presence of right artificial knee joint ==